=== PATIENT | female | born 1940 ===

== ENCOUNTER → 2023-11-14 | Outpatient (CLI) | payer MEDICARE ==
--- NOTE | 2023-12-04 12:21 | MR ---
Patient: Rosa Guzman Ordering Physician: Unknown, Unknown ID: [id number] Phone, Pager: Phon e: N/A Pager: N/A : [phone] Age/Gender: 83Y, F Primary Location: N/A Procedure: MRI LUMBAR WO [facility] Date: 11/14/2023 8:14:23 AM EXAMINATION TYPE: MR lumbar spine wo con DATE OF EXAM: 11/14/2023 COMPARISON: No comparison available on downtime PACS. HISTORY: Low back pain and leg numbness CONTRAST: 0 mL intravenous Gadavist. TECHNIQUE: Multiplanar, multisequence images of the lumbar spine were acquired. FINDINGS: L5-S1: There is a mild grade 1 spondylolisthesis of L5 anteriorly on S1. There is disc space narrowin g. No AP spinal canal stenosis is present. Facet hypertrophy is present on the right. Severe right an d moderate left foraminal narrowing is present. L4-L5: There is a grade 1 spondylolisthesis of L4 anteriorly on L5. There is loss of disc height at t his level. Disc uncovering is present. Facet hypertrophy and ligamentum flavum laxity is present with significant thecal sac impression. Dis c bulging and congenitally short pedicles contribute to severe spinal canal stenosis. Severe right a nd moderate left foraminal narrowing is present L3-L4: No significant disc bulge or disc herniation. No spinal canal stenosis. No foraminal stenosi s. There may be some fluid accumulation in the lateral foraminal region. This has inferior nerve rafy t contact. Example image series 301 image 5. L2-L3: No significant disc bulge or disc herniation. No spinal canal stenosis. No foraminal stenosi s. Facet hypertrophy is present. L1-L2: No significant disc bulge or disc herniation. No spinal canal stenosis. No foraminal stenosi s. T12-L1: No significant disc bulge or disc herniation. No spinal canal stenosis. No foraminal stenos is. Tarlov cysts are within the sacrum posterior to S2. Small left cyst may be at the S1 level. There is a cyst in the right of the L4-5 level. Small cysts in the left L3-4 region largest cyst is extending from the foramen of T12-L1 extending into the paraspinal regions. Tarlov cyst and pseudomeningocele c ould be considered. IMPRESSION: 1. Grade 1 spondylolisthesis of L5 anteriorly on S1 with a grade 1 approaching grade 2 spondylolisthe sis of L4 anterior to L5. 2. Degenerative disc changes L4-5 and L5-S1. 3. Severe spinal canal stenosis L4-5 due to disc uncovering congenitally short pedicles and marked fa cet hypertrophy with ligamentum flavum laxity. 4. Multilevel Tarlov cysts. Largest are on the left at T12 posterior to S2. Smaller cystlike collecti ons are present bilaterally discussed above.
== END | disposition home or self-care (01) ==
LOC: RADMRIMAIN 09:00
PROVIDERS: ATTEND Internal Medicine
CPT/HCPCS: 72148